=== PATIENT | male | born 2000 | race Caucasian/White ===

== ENCOUNTER 2021-12-13 10:45 | Emergency (ER) | payer OTHER ==
[~2021-12-13] VITALS: Ht 172.7 cm; Wt 74.8 kg
[2021-12-13 11:03] VITALS: BP_SYST 109
[2021-12-13] MEDS ORDERED: LIDO1ADH77 TP (12:54)
[2021-12-13] MEDS ORDERED: NAPR-688 PO (12:54)
[2021-12-13 13:37] VITALS: BP_SYST 109
== END 2021-12-13 13:37 | disposition home or self-care (01) ==
LOC: SED 10:45
DX: S20.211A Contusion of right front wall of thorax, initial encounter (principal); Z79.899 Other long term (current) drug therapy; W51.XXXA Accidental striking against or bumped into by another person, initial encounter; Y93.61 Activity, american tackle football; Y92.89 Other specified places as the place of occurrence of the external cause; Y99.8 Other external cause status
CPT/HCPCS: 71046-TC; 99283

== ENCOUNTER 2022-01-09 14:17 | Emergency (ER) | payer OTHER ==
[~2022-01-09] VITALS: Ht 172.7 cm; Wt 59.4 kg
[~2022-01-09 14:17] MED LIST: LIDO1ADH77 TP; NAPR-688 PO
[2022-01-09 14:24] VITALS: BP_SYST 119
[2022-01-09] MEDS: BACITRACIN 1 GM OINT TP ONE (15:01)
[2022-01-09] MEDS: DIPH-TET-PERTUS Vaccine 0.5 ML VIAL (ADACEL) I.M. ONE (15:05)
[2022-01-09 15:11] VITALS: BP_SYST 118
== END 2022-01-09 15:11 | disposition home or self-care (01) ==
LOC: SED 14:17
DX: S51.012A Laceration without foreign body of left elbow, initial encounter (principal); S20.211A Contusion of right front wall of thorax, initial encounter; W45.8XXA Other foreign body or object entering through skin, initial encounter; Y93.89 Activity, other specified; Y92.89 Other specified places as the place of occurrence of the external cause; Y99.0 Civilian activity done for income or pay
CPT/HCPCS: 71045; 90715; 99283

== ENCOUNTER 2023-12-12 17:01 | Emergency (ER) | payer OTHER ==
[~2023-12-12] VITALS: Ht 170.2 cm; Wt 72.6 kg
[2023-12-12 17:05] VITALS: BP_SYST 122; PULSE 67; RESP 18; TEMP 97.2; O2SAT 100
[2023-12-12 19:35] VITALS: BP_SYST 122; PULSE 67; RESP 18; TEMP 97.2; O2SAT 100
[2023-12-12] MEDS ORDERED: LIDO1ADH22 TP (19:35)
[2023-12-12] MEDS ORDERED: CYCL10TA24 PO (19:35)
== END 2023-12-12 19:42 | disposition home or self-care (01) ==
LOC: SED 17:01
DX: S13.4XXA Sprain of ligaments of cervical spine, initial encounter (principal); S20.212A Contusion of left front wall of thorax, initial encounter; S09.90XA Unspecified injury of head, initial encounter; Z79.899 Other long term (current) drug therapy; V89.2XXA Person injured in unspecified motor-vehicle accident, traffic, initial encounter; Y93.89 Activity, other specified; Y92.89 Other specified places as the place of occurrence of the external cause; Y99.8 Other external cause status
CPT/HCPCS: 70450-TC; 71100; 72125-TC; 76376; 99284